=== PATIENT | male | born 1950 | race Caucasian/White ===

== ENCOUNTER 2025-04-13 09:25 | Day surgery (SDC) | payer OTHER ==
[~2025-04-13] VITALS: Ht 167.6 cm; Wt 97.2 kg
[~2025-04-13 09:25] MED LIST: EFFE150C3 PO; EZET1TAB98 PO; HYDR-3713 PO; MILK175C6 PO; MULT-90 PO; OLME20TA50 PO; OMEP-173 PO; VITA100093 PO; XANA0.5T PO
[2025-04-13] MEDS ORDERED: LIDOCAINE 2% 100 MG/5 ML SDV (FOR ANES.) As Ordered ONE (10:49)
[2025-04-13] MEDS ORDERED: MIDAZOLAM INJ 2 MG/2 ML VIAL As Ordered ONE (10:49)
[2025-04-13] MEDS ORDERED: SUGAMMADEX SODIUM 500 MG/5 ML VIAL As Ordered ONE (10:49)
[2025-04-13] MEDS ORDERED: ROCURONIUM BROMIDE 50MG/5ML VIAL As Ordered ONE (10:49)
[2025-04-13] MEDS ORDERED: ONDANSETRON 4MG 2ML VIAL As Ordered ONE (10:50)
[2025-04-13] MEDS ORDERED: ACETAMINOPHEN 1000MG/100ML IV BAG As Ordered ONE (10:50)
[2025-04-13] MEDS ORDERED: KETOROLAC 30 MG/ML 1 ML VIAL As Ordered ONE (10:50)
[2025-04-13] MEDS ORDERED: dexAMETHasone 4 MG/ML 1 ML VIAL As Ordered ONE (10:50)
[2025-04-13] MEDS ORDERED: HOME MED LIST COMPLETE! XX SCH (11:50)
[2025-04-13] MEDS: HEPARIN SOD 5000 UNITS/ML 1 ML VIAL/SYRINGE SQ ONE (12:45)
[2025-04-13] MEDS: ceFAZolin SOD 2 GM IV ONCE IV ONE (12:48)
[2025-04-13] MEDS ORDERED: HYDROmorphone HCL 2 MG/ML 1 ML VIAL As Ordered ONE (13:35)
[2025-04-13] MEDS ORDERED: ACETAMINOPHEN 325 MG TAB PO PRN (15:00)
[2025-04-13] MEDS ORDERED: ONDANSETRON 4MG 2ML VIAL IV PRN (15:00)
[2025-04-13] MEDS ORDERED: PERCOCET 5MG/325MG TAB PO PRN (15:00)
[2025-04-13] MEDS: LIDOCAINE 1% SDV 30 ML VIAL As Ordered ONE (17:20)
[2025-04-13 18:39] VITALS: BP 127/76; TEMP 97.7; O2SAT 95
[2025-04-13] MEDS: NS (Normal Saline) 0.9% 1,000 ML IV SCH (18:45)
[2025-04-13 19:06] VITALS: BP 122/71; TEMP 97.9; O2SAT 93
[2025-04-13 19:37] VITALS: BP 125/71; TEMP 97.9; O2SAT 93
[2025-04-13] MEDS: ceFAZolin SOD 1 GM in DEXTROSE 5% (D5W) ADV/MINI-BAG 50 ML IV SCH (19:47)
[2025-04-13] MEDS: VENLAFAXINE **XR** 75MG CAPSULE PO SCH (19:47)
[2025-04-13] MEDS: DOCUSATE SODIUM 100 MG CAPSULE PO SCH (19:47)
[2025-04-13 20:02] LABS: PLATELET COUNT, AUTOMATED 216 10^3/uL (150-450)
[2025-04-13 20:22] LABS: CALCIUM LEVEL 8.3 MG/DL (8.3-10.6); CARBON DIOXIDE LEVEL 25.0 MMOL/L (20-31); CHLORIDE LEVEL 103.0 MMOL/L (98-107); CREATININE FOR GFR 1.17 MG/DL (0.70-1.30); GLOMERULAR FILTRATION RATE 65.4 (>42); POTASSIUM SERUM 4.5 MMOL/L (3.5-5.1); SODIUM LEVEL 142.0 MMOL/L (136-145)
[2025-04-13 21:00] VITALS: BP 128/72; TEMP 98.1; O2SAT 96
[2025-04-13] MEDS: PERCOCET 5MG/325MG TAB PO PRN (21:53)
[2025-04-13 22:00] VITALS: BP 128/72; TEMP 98.2; O2SAT 96
[2025-04-13 23:00] VITALS: BP 124/69; TEMP 98.4; O2SAT 96
[2025-04-14] VITALS: BP 123/70; TEMP 98.4; O2SAT 92
[2025-04-14 03:54] VITALS: BP 122/71; TEMP 98.8; TEMP 99; O2SAT 93
[2025-04-14 06:33] LABS: PLATELET COUNT, AUTOMATED 229 10^3/uL (150-450)
[2025-04-14 07:05] LABS: CALCIUM LEVEL 8.3 MG/DL (8.3-10.6); CARBON DIOXIDE LEVEL 25.0 MMOL/L (20-31); CHLORIDE LEVEL 102.0 MMOL/L (98-107); CREATININE FOR GFR 1.12 MG/DL (0.70-1.30); GLOMERULAR FILTRATION RATE 68.9 (>42); POTASSIUM SERUM 4.2 MMOL/L (3.5-5.1); SODIUM LEVEL 139.0 MMOL/L (136-145)
[2025-04-14] MEDS: EZETIMIBE 10 MG TABLET PO SCH (07:55)
[2025-04-14] MEDS: OMEPRAZOLE 20MG CAP PO SCH (07:55)
[2025-04-14] MEDS: SIMVASTATIN 40 MG TAB PO SCH (07:56)
[2025-04-14 07:59] VITALS: BP 124/72; TEMP 98.2; O2SAT 93
[2025-04-14] MEDS ORDERED: PILL CUTTER 1 EACH XX PRN (08:35)
[2025-04-14] MEDS ORDERED: CIPR-249 PO (09:07)
[2025-04-14] MEDS ORDERED: COLA100C5 PO (09:07)
[2025-04-14 09:36] VITALS: BP 124/72
[2025-04-14] MEDS: OLMESARTAN MEDOXOMIL 20 MG TAB PO SCH (09:36)
[2025-04-14] MEDS: HEPARIN SOD 5000 UNITS/ML 1 ML VIAL/SYRINGE SC SCH (09:37)
[2025-04-14 11:53] VITALS: BP 121/73; TEMP 98.8; O2SAT 93
== END 2025-04-14 15:54 | disposition home or self-care (01) ==
LOC: M SDC 09:25 → M MSPAV 18:34 → M SDC 04-14 15:54
PROVIDERS: ATTEND Urology
DX: C61 Malignant neoplasm of prostate (principal); I10 Essential (primary) hypertension; E78.00 Pure hypercholesterolemia, unspecified; Z79.899 Other long term (current) drug therapy; F43.10 Post-traumatic stress disorder, unspecified; F41.9 Anxiety disorder, unspecified; K21.9 Gastro-esophageal reflux disease without esophagitis; Z86.0100 Personal history of colon polyps, unspecified; Z96.641 Presence of right artificial hip joint
CPT/HCPCS: 36415; 38571; 55866; 80048; 85027; 86850; 86900; 86901; 88305; 88309; J0131; J0665; J0690; J1100; J1171; J2250; J2405; J3010